=== PATIENT | female | born 1990 | race Caucasian/White ===

== ENCOUNTER 2018-08-10 22:20 | Emergency (ER) | payer OTHER ==
[~2018-08-10] VITALS: Ht 144.8 cm; Wt 64.0 kg
[2018-08-10 22:30] VITALS: BP 123/86
--- NOTE | 2018-08-10 22:33 | NUR ---
TO LOBBY A/W BED, AMBULATORY
--- NOTE | 2018-08-10 23:12 | NUR ---
PT AMBULATED TO ER ROOM 03
--- NOTE | 2018-08-10 23:15 | NUR ---
PT TO ED WITH C/O ANXIETY X TODAY. PT REPORTS FEELING ANXIOUS. DENIES N/V. NO RESPIRATORY DISTRESS NOTED. PT ABLE TO SPEAK IN FULL, CLEAR STENCES WITHOUT ANY DIFFICULTY. PT PLACED INTO BED, PENDING MD HILL.
[2018-08-10] MEDS ORDERED: DICYCLOMINE HCL LIQUID 20 MG, ALUMINUM HYD/MAG/SIMETHICONE 30 ML, LIDOCAINE VISCOUS 2% ... PO ONE ×3 (23:40)
[2018-08-10] MEDS ORDERED: LORazepam 1 MG TAB PO ONE (23:40)
[2018-08-11] MEDS ORDERED: ONDANSETRON 4 MG ODT PO ONE (00:35)
--- NOTE | 2018-08-11 01:08 | NUR ---
Patient discharged with v/s stable. Written and verbal after care instructions given and explained. Patient verbalized understanding. Ambulatory with steady gait. All questions addressed prior to discharge. Advised to follow up with PMD.
[2018-08-11 01:09] VITALS: BP 118/76
== END 2018-08-11 01:09 | disposition home or self-care (01) ==
LOC: MED 22:20
DX: O99.341 Other mental disorders complicating pregnancy, first trimester (principal); F41.9 Anxiety disorder, unspecified; O99.611 Diseases of the digestive system complicating pregnancy, first trimester; K21.9 Gastro-esophageal reflux disease without esophagitis; Z3A.11 11 weeks gestation of pregnancy
CPT/HCPCS: 81002; 81025; 99284; Q0162

== ENCOUNTER 2019-01-21 18:41 | Observation (INO) | payer OTHER ==
[~2019-01-21] VITALS: Ht 149.9 cm; Wt 70.8 kg
[2019-01-21 18:51] VITALS: BP 124/68
--- NOTE | 2019-01-21 18:55 | NUR ---
PER TED, PT WILL GO TO L & D # 5
[2019-01-21] MEDS ORDERED: PREN-380 PO (20:55)
[2019-01-21] MEDS ORDERED: LEVO0.2T5 PO (20:57)
[2019-01-21 21:04] VITALS: BP 105/69
[2019-01-21] MEDS ORDERED: ACETAMINOPHEN 325 MG TAB PO PRN (21:45)
[2019-01-21] MEDS ORDERED: ACETAMINOPHEN 325 MG TAB ONE (21:49)
== END 2019-01-22 03:35 | disposition home or self-care (01) ==
LOC: MED 18:41 → MLD 19:00
PROVIDERS: ADMIT Obstetrics & Gynecology; ATTEND Obstetrics & Gynecology
DX: O26.893 Other specified pregnancy related conditions, third trimester (principal); M25.552 Pain in left hip; M25.551 Pain in right hip; R10.9 Unspecified abdominal pain; Z3A.34 34 weeks gestation of pregnancy
CPT/HCPCS: 81000; 99281; G0378